=== PATIENT | male | born 1945 | race Hispanic/Latino ===

== ENCOUNTER 2017-05-15 07:14 | Outpatient (CLI) | payer MEDICARE | END 2017-05-15 07:15 | disposition home or self-care (01) | LOC: MRI 07:14 | PROVIDERS: ATTEND Family Medicine | DX: M54.16 Radiculopathy, lumbar region (principal); Z53.8 Procedure and treatment not carried out for other reasons ==

== ENCOUNTER 2017-05-16 12:18 | Day surgery (SDC) | payer MEDICARE ==
[2017-05-15 15:37] VITALS: BMI 28.0
[2017-05-16] MEDS ORDERED: Fentanyl 100 MCG/2 ML VIAL ONE (13:07)
[2017-05-16] MEDS ORDERED: Ketorolac Tromethamine 30 MG/ML VIAL ONE (14:25)
[2017-05-16] MEDS ORDERED: HYDROcodone/Acetaminophen 5/325 mg Tablet ONE (14:59)
--- NOTE | 2017-05-16 17:35 | MRI ---
MRI LUMBAR SPINE WITHOUT CONTRAST: Date: 05/16/17 Multiplanar, multisequential imaging of lumbar spine obtained. HISTORY: Low back pain. Right leg radiculopathy. FINDINGS: The lumbar vertebral maintain height and alignment. Degenerative disc changes are seen at multiple le vels with mild loss of disc space at all levels of lumbar spine. Lumbar vertebra maintain normal sign al. At T12-L1, there is mild disc bulge and mild facet arthrosis. No significant central canal or foramin al stenosis. At L1-2, there is mild disc bulge and mild facet arthrosis. No significant central canal or foraminal stenosis. At L2-3, there is very mild disc bulge. Mild facet arthrosis. No significant central canal or foramin al stenosis. At L3-4, there is a diffuse broad based disc bulge flattening the thecal sac and extending into the f oramina bilaterally. Posterior facet and ligamentous hypertrophy. Moderate to severe central canal st enosis. Bilateral foraminal stenosis. At L4-5, diffuse disc bulge flattens the thecal sac. Facet and ligamentous hypertrophy. Mild to moder ate central canal stenosis. There is disc osteophyte complex projecting to the right which encroaches into the foramina and extends laterally on the right. This appears to impinge on the exiting right L 4 nerve root. Likewise, there is left foraminal encroachment due to the disc bulge and facet hypertro phy. Bilateral foraminal stenosis at this level. At L5-S1, there is mild diffuse disc bulge and mild facet arthrosis. No significant central canal leobardo nosis. Disc osteophyte complex projects laterally on both sides, slightly more pronounced to the righ t, and this does appear to impinge and possibly displace the exiting right L5 nerve root as seen in t he sagittal projection. Incidentally noted is atrophic left kidney with evidence of left hydronephrosis. This may represent a chronic UPJ obstruction with loss of left renal parenchyma. Recommend clinical correlation and [facility] evaluation as indicated. IMPRESSION: 1. Central canal stenosis at L3-4 and L4-5 as described above. Foraminal encroachment at L3-4, L4-5, and L5-S1 as described above. 2. 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 Recommend clinical correlation regarding history and further evaluation as indic ated. POS: [facility]
== END 2017-05-16 15:25 | disposition home or self-care (01) ==
LOC: SDC/OP 12:18
PROVIDERS: ATTEND Family Medicine
DX: M54.16 Radiculopathy, lumbar region (principal); N13.30 Unspecified hydronephrosis; Z88.1 Allergy status to other antibiotic agents; Z87.891 Personal history of nicotine dependence
CPT/HCPCS: 36415; 72148; 82565; 96374; J1885; J3010

== ENCOUNTER 2017-06-14 08:50 | Outpatient (CLI) | payer MEDICARE | END 2017-06-14 08:51 | disposition home or self-care (01) | LOC: LABBT 08:50 | PROVIDERS: ATTEND Neurological Surgery | DX: Z01.818 Encounter for other preprocedural examination (principal); M54.16 Radiculopathy, lumbar region ==

== ENCOUNTER 2017-06-21 05:35 | Day surgery (SDC) | payer MEDICARE ==
[2017-06-14 08:54] VITALS: BMI 28.3
--- NOTE | 2017-06-20 23:53 | HP ---
HISTORY OF PRESENT ILLNESS: Mr. Tee is a very pleasant 72-year-old man who presents for evaluat ion of severe lumbar radiculopathy and weakness, referred by Dr. Barnes to our office, most consisten tly this fits an L5 radiculopathy, but does seem to have some associated L4 pain and numbness and the n some mild dorsiflexion weakness along the right foot, grading 3 out of 5. MRI scan from [place] reveals severe foraminal stenosis at both L4 and L5 to the right and he would like to move forward w ith surgery if possible symptoms. PAST MEDICAL HISTORY: Significant for hypertension. CURRENT MEDICATIONS: Tylenol #4. PAST SURGICAL HISTORY: Unassessed. ALLERGIES: No known drug allergies. PHYSICAL EXAMINATION: GENERAL: The patient is alert and oriented x3. EXTREMITIES: Gait is antalgic and altered. He does have 3/5 weakness with dorsiflexion of the right foot. Left lower extremity is completely normal. Right knee extension has 4/5 strength. The rest of his motor exam is normal. He has some mild paresthesias in the L4 pattern to the right lower extr emity. ASSESSMENT: Lumbar radiculopathy and foraminal stenosis. PLAN: Dr. Wilson met with the patient, reviewed imaging and ultimately advocated for a facetectomy at L4 and L5 on the right. He explained to the patient the risks, benefits, and alternatives to the pr ocedure. The patient expressed understanding and would like to move forward with surgery as amelia rocha. I do believe the patient is mentally competent and capable of making medical decisions for himsel f and we will move forward with surgery as planned.
[2017-06-21] MEDS ORDERED: CEFAZOLIN/Water 2 GM/20 ML SYRINGE ONE (06:00)
[2017-06-21] MEDS ORDERED: Fentanyl 100 MCG/2 ML VIAL ONE ×2 (06:10)
[2017-06-21] MEDS ORDERED: Midazolam HCl 2 mg/2 ml Vial ONE (06:10)
[2017-06-21] MEDS ORDERED: Bupivacaine/Epinephrine 0.25% 30 ML VIAL ONE (06:16)
[2017-06-21] MEDS ORDERED: Thrombin 5000 UNITS/5 ML VIAL ONE (06:16)
--- NOTE | 2017-06-21 08:49 | OP ---
DATE OF PROCEDURE: 06/21/2017 SURGEON: Gino Wilson M.D. TEST ENGINEER NUCLEAR EQUIPMENT: Alin Ovalle PA-C INDICATION: Pain. PREOPERATIVE DIAGNOSIS: Right L4-L5 radiculopathy with associated numbness and foot drop. ANESTHESIA: General. PROCEDURE: Right L5 facetectomy and right L4 foraminotomy. TECHNIQUE: The patient was brought into the operating room and placed under general anesthesia. He was flipped from a supine to a prone position on the operating room table. A linear incision was brigette nned over the L4 and L5 segments. After prepping and draping and after an appropriate operative paus e, the incision was created. The soft tissues were swept right of midline. A self-retaining retract or was placed in the wound for optimal exposure. After confirming the appropriate levels, a high-spe ed cutting drill bit as well as 2, 3 and 4 mm Kerrisons were used to remove most of the facet joint a t L5-S1 on the right side. The descending and exiting L5 nerve root could be identified and was comp letely decompressed at the end of the procedure. I then redirected attention at L4 where medial face tectomy and foraminotomy was performed over the exiting L4 nerve root. The wound was irrigated. Hem ostasis was maintained throughout. The wound was then closed in anatomic layers and a pressure dress ing was applied. There were no known procedural complications.
[2017-06-21] MEDS ORDERED: Tamsulosin HCl 0.4 MG CAP ONE (08:57)
[2017-06-21] MEDS ORDERED: diphenhydrAMINE 50 MG/ML VIAL IVP PRN (10:12)
[2017-06-21] MEDS ORDERED: Acetaminophen 650 MG Suppository PR PRN (10:12)
[2017-06-21] MEDS ORDERED: tiZANidine HCl 4 MG TAB PO PRN (10:12)
[2017-06-21] MEDS ORDERED: Zolpidem Tartrate 5 MG TAB PO PRN ×2 (10:12)
[2017-06-21] MEDS ORDERED: Acetaminophen/Codeine 30-300mg Tablet PO PRN ×2 (10:12)
[2017-06-21] MEDS ORDERED: Sodium Chloride 0.9% 1,000 ML IV SCH (10:12)
[2017-06-21] MEDS ORDERED: diphenhydrAMINE 25 MG CAP PO PRN (10:12)
[2017-06-21] MEDS ORDERED: Acetaminophen 325 MG TAB PO PRN (10:12)
[2017-06-21] MEDS ORDERED: Mag-Al 1200 mg/1200 mg/30 ML UDCUP PO PRN (10:12)
[2017-06-21] MEDS ORDERED: Morphine 4 MG/ML Carpuject SLOW IVP PRN (10:12)
[2017-06-21] MEDS ORDERED: Bisacodyl 10 MG SUPP PR PRN (10:12)
[2017-06-21] MEDS ORDERED: Ondansetron HCl/PF 4 MG/2 ML Vial IM PRN (10:15)
[2017-06-21] MEDS ORDERED: Lidocaine 1% PF 5 ML VIAL ONE (12:57)
[2017-06-21] MEDS ORDERED: PROPOFOL 200 MG/20 ML VIAL ONE (12:57)
[2017-06-21] MEDS ORDERED: Dexamethasone 20 MG/5 ML VIAL ONE (12:57)
[2017-06-21] MEDS ORDERED: Glycopyrrolate 0.2 MG/ML 5 ML SYRINGE ONE (12:57)
[2017-06-21] MEDS ORDERED: PHENYLEPHRINE-NS 100 MCG/ML 10 ML SYRINGE ONE (12:57)
[2017-06-21] MEDS ORDERED: Ondansetron HCl/PF 4 MG/2 ML Vial ONE (12:57)
[2017-06-21] MEDS ORDERED: CEFAZOLIN/Water 2 GM/20 ML SYRINGE SLOW IVP SCH (16:00)
[2017-06-22] MEDS ORDERED: Tamsulosin HCl 0.4 MG CAP PO SCH (06:00)
== END 2017-06-21 11:00 | disposition home or self-care (01) ==
LOC: SDC 05:35
PROVIDERS: ATTEND Neurological Surgery
PROC: 01NB0ZZ Release Lumbar Nerve, Open Approach (ICD-10-PCS; principal; 2017-06-21)
DX: M54.16 Radiculopathy, lumbar region (principal); I10 Essential (primary) hypertension; Z88.1 Allergy status to other antibiotic agents
CPT/HCPCS: 76001; J1100; J2001; J2250; J2405; J2704; J3010

== ENCOUNTER 2018-01-15 18:35 | Emergency (ER) | payer MEDICARE ==
[2018-01-15 19:43] LABS: #Basophils 0.1 thou/uL (0.0-0.2); #Lymphocytes 0.7 thou/uL (1.20-3.40); #Monocytes 0.5 thou/uL (0.11-0.59); #Neutrophils 12.7 thou/uL (1.40-6.50); %Basophils 0.7 % (0.0-1.0); %Eosinophils 0.1 % (0.0-10.0); %Lymphocytes 5.1 % (21.0-51.0); %Monocytes 3.6 % (0.0-10.0); %Neutrophils 90.5 % (42.0-75.0); Hemoglobin 16.1 g/dL (14.0-18.0); Mean Corpuscular HGB CONC 35.9 g/dL (32.0-36.0); Mean Corpuscular Hemoglobin 32.7 pg (27.0-31.0); Mean Platelet Volume 7.1 fL (7.4-10.4); Platelet Count 184 thou/uL (130-400); RBC Distribution Width 11.8 % (11.5-14.5); Red Blood Cell (RBC) Count 4.93 mill/uL (4.70-6.10)
[2018-01-15 19:59] LABS: ALT (SGPT) 19 U/L (8-55); AST (SGOT) 23 U/L (5-34); Albumin 4.3 g/dL (3.4-4.8); Alkaline Phosphatase 123 U/L (40-150); Anion Gap 14 mmol/L (10-20); BUN (Urea Nitrogen) 16 mg/dL (8.4-25.7); Bilirubin, Total 0.5 mg/dL (0.2-1.2); Calc. Creatinine Clearance 0 mL/min (70-130); Calcium 9.5 mg/dL (7.8-10.44); Carbon Dioxide 21 mmol/L (23-31); Chloride 106 mmol/L (98-107); Estimated GFR-MDRD 87; Globulin 3.6 g/dL (2.4-3.5); Glucose 140 mg/dL (83-110); Lipase 10 U/L (8-78); Protein, Total 7.9 g/dL (5.8-8.1); Sodium 137 mmol/L (136-145)
[2018-01-15] MEDS ORDERED: Pantoprazole 40 MG VIAL ONE (23:34)
[2018-01-15] MEDS ORDERED: Ondansetron HCl/PF 4 MG/2 ML Vial ONE (23:34)
[2018-01-15 23:52] LABS: Bilirubin Small (Negative); Blood, Urine Trace (Negative); Clarity CLEAR (Clear); Glucose, Urine (Dipstick) Negative (Negative); Leukocyte Negative (Negative); Nitrite Negative (Negative); Protein, Urine (Dipstick) 300 mg/dL (Neg-Trace); Specific Gravity, Urine 1.033 (1.002-1.036); Urobilinogen 0.2 mg/dL (0.2-1.0); pH, Urine 5.5 (5.0-9.0)
[2018-01-15 23:55] LABS: Bacteria/HPF None Seen HPF (None Seen); RBC/HPF 0-3 HPF (0-3); Squamous Epithelial 0-3 HPF (0-3); WBC/HPF 0-3 HPF (0-3)
[2018-01-15 23:58] LABS: Hyaline Casts/LPF 0-3 HYALINE CAST LPF (0-3 Hyaline); Other Casts/LPF None Seen LPF (0-3 Hyaline); Pathc Cast-AUWi Flag 3.19 (0-2.49)
[2018-01-16] MEDS ORDERED: Levofloxacin 500 mg/D5W 100 ml Premix Bag ONE (01:44)
[2018-01-16] MEDS ORDERED: metroNIDAZOLE 500 MG/100 ML BAG ONE (02:05)
--- NOTE | 2018-01-16 09:03 | CT ---
PRELIMINARY REPORT/[facility]/EMERGENTY AFTER-HOURS PROCEDURE CT Abdomen and Pelvis With Intravenous Contrast CLINICAL HISTORY: 72 years old, male; Pain; Abdominal pain; Periumbilical; Patient HX: Er 18; M72 reports to ed C/O abd ominal pain. Pt reports abdominal pain, n/v/d started last night. Pt reports pain has become worse th roughout today. Pt reports the pain is pinpoint to the perumbilical area. Pt denies having this pain prior to yesterday. Pt denies cp, chills, or sore throat. Pt reports takes ibuprofen everyday for "mo re than a few years." TECHNIQUE: Axial computed tomography images of the abdomen and pelvis with intravenous contrast. Coronal reformatted images were created and reviewed. COMPARISON: No relevant prior studies available. FINDINGS: Lung bases: Minimal bibasilar atelectasis and/or scarring. ABDOMEN: Liver: Normal. Gallbladder and bile ducts: Normal. Pancreas: Normal. Spleen: Normal. Adrenals: Normal. Kidneys and ureters: Moderate left renal atrophy, with several simple left renal cysts, the largest m easuring approximately 2.7 cm in diameter. Stomach and bowel: Extensive wall thickening of the ascending, transverse, and proximal descending co roly, with adjacent associated inflammatory stranding, most compatible with infectious/inflammatory co litis. PELVIS: Appendix: No findings to suggest acute appendicitis. Bladder: Mild urinary bladder wall thickening, likely secondary to partially decompressed state, alth ough cystitis possible. Reproductive: Normal as visualized. ABDOMEN and PELVIS: Intraperitoneal space: Fullness within the pelvis. No free air. No significant fluid collection. Bones/joints: Degenerative changes of the hips and sacroiliac joints. Multilevel thoracolumbar spine degenerative changes. No acute fracture. No dislocation. Soft tissues: Normal. Vasculature: Atherosclerotic disease of the abdominal aorta and iliac arteries. No abdominal aortic a neurysm. Lymph nodes: Normal. IMPRESSION: 1. Extensive wall thickening of the ascending, transverse, and proximal descending colon, with adjace nt associated inflammatory stranding, most compatible with infectious/inflammatory colitis. 2. Mild urinary bladder wall thickening, likely secondary to partially decompressed state, although c ystitis possible. 3. Incidental/non-acute findings are described above. Thank you for allowing us to participate in the care of your patient. Dictated and Authenticated by: Abdias Mcintosh MD 01/16/2018 12:56 AM Central Time ([place] & [place]) FINAL INTERPRETATION CT ABDOMEN AND PELVIS: 01/16/2018 HISTORY: Abdominal pain with nausea, vomiting, and diarrhea. COMPARISON: None. FINDINGS: I agree with the preliminary [facility] report, dictated by Dr. Abdias Mcintosh. The imaged lung bases appear grossly unremarkable. No free intraperitoneal air noted. No focal liver lesion identified. The gallbladder is grossly unremarkable, as is the spleen. The pancreas and adrenal glands are unrem arkable. The left kidney is markedly atrophic with severe cortical thinning and evidence of chronic UPJ obstruction. Mild nonspecific wall thickening of the urinary bladder is noted. Urinalysis sugge sted. The right kidney appears grossly unremarkable. There is prominent colonic wall thickening involving the ascending colon, hepatic flexure, and transv erse colon, to the level of the junction of the transverse colon and the splenic flexure. There is scattered atherosclerotic calcification of the abdominal aorta and its branches. The celiac axis, the superior mesenteric artery, the superior mesenteric vein, and the inferior mesenteric jerrica ry are patent. No lymphadenopathy is noted within the abdomen or pelvis. The osseous structures demonstrate multile ana lower lumbar spine degenerative change with multilevel disk space narrowing and degenerative endp late change, as well as multilevel lower lumbar spine facet hypertrophy. No lytic or blastic bone lesion. IMPRESSION: 1. Extensive wall thickening of the colon suggests an infectious/inflammatory colitis. Follow-up im aging advised to document resolution. 2. Wall thickening of the urinary bladder, which could, in part, be on the basis of underdistension or true nonspecific urinary bladder wall thickening. POS: [facility]
== END 2018-01-16 03:56 | disposition home or self-care (01) ==
LOC: ERS 18:35
DX: K52.9 Noninfective gastroenteritis and colitis, unspecified (principal)
CPT/HCPCS: 36415; 74177; 80053; 81003; 81015; 82274; 83690; 85025; 96361; 96365; 96366; 96368; 96375; C9113; J1956; J2270; J2405

== ENCOUNTER 2018-01-28 12:50 | Emergency (ER) | payer MEDICARE ==
[2018-01-28 13:22] LABS: #Eosinphils 0.2 thou/uL (0.0-0.7); #Lymphocytes 1.3 thou/uL (1.20-3.40); #Monocytes 0.6 thou/uL (0.11-0.59); #Neutrophils 4.9 thou/uL (1.40-6.50); %Basophils 0.1 % (0.0-1.0); %Eosinophils 3.2 % (0.0-10.0); %Lymphocytes 18.4 % (21.0-51.0); %Monocytes 9.1 % (0.0-10.0); %Neutrophils 69.3 % (42.0-75.0); Hemoglobin 12.4 g/dL (14.0-18.0); Mean Corpuscular HGB CONC 34.5 g/dL (32.0-36.0); Mean Corpuscular Hemoglobin 32.5 pg (27.0-31.0); Mean Corpuscular Volume 94.3 fL (78.0-98.0); Mean Platelet Volume 6.6 fL (7.4-10.4); Platelet Count 348 thou/uL (130-400); RBC Distribution Width 11.4 % (11.5-14.5); White Blood Cell (WBC) Count 7.1 thou/uL (4.8-10.8)
[2018-01-28 13:43] LABS: ALT (SGPT) 39 U/L (8-55); AST (SGOT) 34 U/L (5-34); Albumin 3.5 g/dL (3.4-4.8); Alkaline Phosphatase 120 U/L (40-150); Anion Gap 13 mmol/L (10-20); BUN (Urea Nitrogen) 15 mg/dL (8.4-25.7); Bilirubin, Total 0.4 mg/dL (0.2-1.2); CK (CPK) 150 U/L (30-200); Calc. Creatinine Clearance 0 mL/min (70-130); Calcium 8.6 mg/dL (7.8-10.44); Carbon Dioxide 26 mmol/L (23-31); Chloride 105 mmol/L (98-107); Estimated GFR-MDRD 71; Globulin 2.8 g/dL (2.4-3.5); Glucose 96 mg/dL (83-110); Potassium 4.5 mmol/L (3.5-5.1); Protein, Total 6.3 g/dL (5.8-8.1); Sodium 139 mmol/L (136-145)
[2018-01-28 13:46] LABS: CKMB 3.1 ng/mL (0-6.6); Troponin I Less than 0.010 ng/mL (< 0.028)
--- NOTE | 2018-01-28 15:10 | CT ---
CT BRAIN WITHOUT COTNRAST: HISTORY: Headache, dizziness. FINDINGS: No evidence of infarct, hemorrhage, midline shift, or abnormal extraaxial fluid collections is seen. The ventricular size is appropriate and the basilar cisterns are patent. Bilateral basal ganglion c alcifications are present. The bony calvarium is intact. The visualized paranasal sinuses and masto id air cells are well aerated. IMPRESSION: No Ct evidence of acute intracranial process. POS: [facility]
== END 2018-01-28 14:30 | disposition home or self-care (01) ==
LOC: ERS 12:50
DX: D64.9 Anemia, unspecified (principal); Z79.899 Other long term (current) drug therapy
CPT/HCPCS: 36415; 70450; 80053; 82550; 82553; 84484; 85025; 93005